=== PATIENT | male | born 1950 | race Caucasian/White ===

== ENCOUNTER → 2020-08-30 10:46 | Outpatient (CLI) | payer MEDICARE, SELFPAY ==
[2020-08-30] MEDS: COVID-19 VACC #1, MRNA(MOD) 100 MCG/0.5 ML VIAL IM (11:00)
== END ==
PROVIDERS: PCP Family Medicine; Visit Provider Internal Medicine
DX: Z23 Encounter for immunization (principal)
CPT/HCPCS: 0011A; 91301

== ENCOUNTER → 2020-09-26 13:34 | Outpatient (CLI) | payer MEDICARE, SELFPAY ==
[2020-09-26] MEDS: COVID-19 VACC #2, MRNA(MOD) 100 MCG/0.5 ML VIAL IM (13:39)
== END ==
PROVIDERS: PCP Family Medicine; Visit Provider Internal Medicine
DX: Z23 Encounter for immunization (principal)
CPT/HCPCS: 0012A; 91301

== ENCOUNTER 2024-05-14 09:44 | Emergency (ER) | payer MEDICARE, SELFPAY ==
[2024-05-14 10:14] VITALS: BP 170/75; PULSE 55; RESP 16; TEMP 36.4; O2SAT 99; BMI 24.2
--- NOTE | 2024-05-14 10:18 | DI.RAD.S_ITS ---
PROCEDURE: XR FINGER LT MIN 2V INDICATIONS: deformity/fall TECHNIQUE: AP hand, 2 views of the 4th finger(s) acquired. COMPARISON: None. FINDINGS: Bones: 4th PIP anterior dislocation without evidence of fracture or foreign body. DIP arthritic changes noted Soft tissues: No suspicious soft tissue calcifications. IMPRESSION: Fourth PIP anterior dislocation Approved by: Georges Gibbs M.D. on 05/14/2024 at 10:25
--- NOTE | 2024-05-14 11:44 | ED.UPPEXIN ---
HPI - Extremity Injury (Upper) <Karlie Desai PA-C - Last Filed: 05/14/24 13:02> General Chief Complaint: Extremity Injury, Upper Stated Complaint: [facility]IC; L Hand Finger Injury Time Seen by Provider: 05/14/24 10:38 History of Present Illness HPI narrative: patient is a pleasant 74-year-old male presents to the emergency department with his with pain to the left 4th finger. He initially presented to the walk-in clinic who sent him to the emergency department for obvious deformity to the PIP joint of the left hand. They did remove his wedding ring in the clinic prior to him being seen here. Patient states that last night he got up to go to the bathroom, he thinks he slipped in some water in bathroom and fell onto an outstretched left hand. He has no other further complaints. Currently has minimal discomfort and pain, obvious deformity of the left 4th finger at the PIP joint. Related Data Previous Rx's Medication Instructions Recorded atorvastatin 20 mg tablet (Lipitor) 20 mg PO HS #90 tabs 12/29/16 lisinopril 20 1 tab PO QDAY #90 tabs 12/29/16 mg-hydrochlorothiazide 12.5 mg tablet Allergies Allergy/AdvReac Type Severity Reaction Status Date / Time No Known Drug Allergies Allergy Unverified 05/14/24 09:30 Review of Systems <Karlie Desai PA-C - Last Filed: 05/14/24 13:02> Review of Systems Narrative: Negative except as above Musculoskeletal Comments: Obvious deformity of the left PIP joint, left hand. Patient History <Karlie Desai PA-C - Last Filed: 05/14/24 13:02> Family History Grandmother Heart disease Exam <Karlie Desai PA-C - Last Filed: 05/14/24 13:02> Initial Vital Signs Initial Vital Signs: Vital Signs Temperature 97.5 F L 05/14/24 10:14 Pulse Rate 55 L 05/14/24 10:14 Respiratory Rate 16 05/14/24 10:14 Blood Pressure 170/75 H 05/14/24 10:14 Pulse Oximetry 99 05/14/24 10:14 Oxygen Delivery Method Room Air 05/14/24 10:14 reviewed Const General: cooperative, healthy appearing, comfortable, well developed, well groomed, No acute distress, No in distress and No anxious Nutritional Appearance: average body habitus and well nourished Eyes General: Yes appearance normal, both eyes and all related structures Pupils: PERRL EOM: EOM intact bilaterally Skin Other: warm pink and dry Neuro Other: cranial nerves are grossly intact, cognition intact, speech intact, gait, sensory intact Extrem Other: range of motion, strength, pulses, cap refill preserved in the upper and lower extremities. Patient has an obvious deformity to the left ring finger, at the PIP joint, there is obvious dislocation to the PIP joint of the left PIP joint of the left ring finger/phalanx. cap refill is preserved. Pulses are present. The rest of his hand exam is negative. Psych Other: Parents, mental status, speech, movement, mood, affect, attitude, thought process, thought content is all within normal limits. <Brandie Callahan DO - Last Filed: 05/14/24 17:34> Initial Vital Signs Initial Vital Signs: Vital Signs Temperature 97.5 F L 05/14/24 10:14 Pulse Rate 55 L 05/14/24 10:14 Respiratory Rate 16 05/14/24 10:14 Blood Pressure 170/75 H 05/14/24 10:14 Pulse Oximetry 99 05/14/24 10:14 Oxygen Delivery Method Room Air 05/14/24 10:14 Procedures <Karlie Desai PA-C - Last Filed: 05/14/24 13:02> Orthopedic Joint Reduction Joint #1: Time of procedure: 12:02 Time Out Performed: Yes Side: left Joint Reduction Location: finger ( Left PIP joint) Analgesia: nerve block ( digital block) Local Anesthesia: lidocaine 1% Amount of anesthesic used (mL): 7 Technique used: direct manipulation Post-reduction neuro exam: intact Post-reduction vascular: intact Post Reduction X-Ray Obtained: Yes Splint Applied: Yes Patient Tolerated Procedure: Well Additional Comments: finger splint applied with and secured with [employer] <YADIEL Dhillon Last Filed: 05/14/24 13:02> GCS Citation: 15 Course <YADIEL Dhillon Last Filed: 05/14/24 13:02> Orders Ordered: ED Orders 05/14/24 10:18 XR finger LT min 2V Stat 05/14/24 12:26 XR finger LT min 2V Stat Vital Signs Vital signs: Vital Signs - 8 hr 05/14/24 10:14 05/14/24 12:48 Temperature 97.5 F L Pulse Rate 55 L 74 Respiratory Rate 16 16 Blood Pressure 170/75 H 159/65 H Pulse Oximetry 99 99 Oxygen Delivery Method Room Air reviewed <DO Chucky Grey Last Filed: 05/14/24 17:34> Orders Ordered: ED Orders 05/14/24 10:18 XR finger LT min 2V Stat 05/14/24 12:26 XR finger LT min 2V Stat Vital Signs Vital signs: Vital Signs - 8 hr 05/14/24 10:14 05/14/24 12:48 Temperature 97.5 F L Pulse Rate 55 L 74 Respiratory Rate 16 16 Blood Pressure 170/75 H 159/65 H Pulse Oximetry 99 99 Oxygen Delivery Method Room Air MDM - Extremity Injury (Upper) <Karlie Desai PA-C - Last Filed: 05/14/24 13:02> Imaging Data Extremity x-ray #1: Radiologist's Impression: [address] [address] XRay Report Signed Patient: Brayden Morris MR#: [id number] : 1950 Acct:[id number] Age/Sex: 74 / M Date of Service: 05/14/24 Loc: ED Accession Number: [id number] Procedure: XR finger LT min 2V Ordering Provider: Brandie Callahan D.O. PROCEDURE: XR FINGER LT MIN 2V INDICATIONS: deformity/fall TECHNIQUE: AP hand, 2 views of the 4th finger(s) acquired. COMPARISON: None. FINDINGS: Bones: 4th PIP anterior dislocation without evidence of fracture or foreign body. DIP arthritic changes noted Soft tissues: No suspicious soft tissue calcifications. IMPRESSION: Fourth PIP anterior dislocation Approved by: Georges Gibbs M.D. on 05/14/2024 at 10:25 Extremity x-ray #2: Radiologist's Impression: [address] [address] XRay Report Signed Patient: Brayden Morris MR#: [id number] : 1950 Acct:[id number] Age/Sex: 74 / M Date of Service: 05/14/24 Loc: ED Accession Number: [id number] Procedure: XR finger LT min 2V Ordering Provider: Karlie Desai PA-C PROCEDURE: XR FINGER LT MIN 2V INDICATIONS: post reduction TECHNIQUE: AP hand, 2 views of the 4th finger(s) acquired. COMPARISON: [facility], CR, XR FINGER LT MIN 2V, 05/14/2024, 10:26. FINDINGS: Bones: Interval reduction of prior dislocation. No fracture. Residual soft tissue swelling. Soft tissues: No suspicious soft tissue calcifications. IMPRESSION: No fracture status post 4th PIP reduction. Good anatomic alignment. Approved by: Georges Gibbs M.D. on 05/14/2024 at 11:56 MDM Narrative Medical decision making narrative: 74-year-old male who fell at home last night sustaining an obvious dislocation to the 4th left PIP joint of his left hand. No other injuries. Initially seen in the walk-in clinic. They removed his ring prior to him being sent to the emergency department. Digital block as above initial x-rays postreduction x-rays finger splint discharge differential diagnosis fall, dislocation with angulation, no fracture to the left PIP joint of the left hand. Discharge Plan Departure Patient Disposition: Home Clinical Impression: Dislocation closed, finger Qualifiers: Encounter type: initial encounter Qualified Code(s): S63.259A - Unspecified dislocation of unspecified finger, initial encounter Activity Restrictions/Additional Instructions: Tylenol, ibuprofen as needed for pain please wear the finger splint for the next 5 days you can remove the finger splint and do slow range of motion increase the time out of the splint and range of motion after the 5 days and come out of the finger splint patient was seen in the emergency department, on 05/14/2024, he had a dislocation of the 4th finger on his left hand, he needs to have the finger relocated here in the emergency department. The splint was applied for security, the patient needs to wear the splint In order to make sure that the finger does not Re dislocate. Karlie Desai physician assistant track and field coach I took care of the patient in the emergency department [facility]. Prescriptions: No Action atorvastatin [Lipitor] 20 MG tablet 20 mg PO HS Qty: 90 1RF lisinopril-hydrochlorothiazide 20 MG/12.5 MG tablet 1 tab PO QDAY Qty: 90 1RF Referrals: Shabbir Wang MD [Primary Care Provider] - Stand Alone Forms: Patient Portal/API, Work Release Note ED Sign-out <Brandie Callahan, - Last Filed: 05/14/24 17:34> Cosign ED Attending Ansonature Attestation: I was available for consultation.
--- NOTE | 2024-05-14 12:26 | DI.RAD.S_ITS ---
PROCEDURE: XR FINGER LT MIN 2V INDICATIONS: post reduction TECHNIQUE: AP hand, 2 views of the 4th finger(s) acquired. COMPARISON: [facility], , XR FINGER LT MIN 2V, 05/14/2024, 10:26. FINDINGS: Bones: Interval reduction of prior dislocation. No fracture. Residual soft tissue swelling. Soft tissues: No suspicious soft tissue calcifications. IMPRESSION: No fracture status post 4th PIP reduction. Good anatomic alignment. Approved by: Georges Gibbs M.D. on 05/14/2024 at 11:56
[2024-05-14 12:48] VITALS: BP 159/65; PULSE 74; RESP 16; O2SAT 99
== END 2024-05-14 12:52 | disposition home or self-care (01) ==
PROVIDERS: Emergency Provider Physician Assistant; PCP Family Medicine
DX: S63.285A Dislocation of proximal interphalangeal joint of left ring finger, initial encounter (principal); W01.0XXA Fall on same level from slipping, tripping and stumbling without subsequent striking against object, initial encounter; Y93.89 Activity, other specified
CPT/HCPCS: 29130; 64450; 73140; 99281; 99284